=== PATIENT | male | born 1995 | race Two or more races ===

== ENCOUNTER 2019-05-29 05:57 | Day surgery (SDC) | payer OTHER ==
[~2019-05-29] VITALS: Ht 180.3 cm; Wt 117.9 kg
[2019-05-29] VITALS (20 sets, daily range): BP systolic 115–162; BP diastolic 61–91
[2019-05-29] MEDS ORDERED: NKM (06:26)
--- NOTE | 2019-05-29 06:52 | Pre-Procedure Note/Attestation ---
Pre-Procedure Note/Attestation Complete Prior to Procedure Planned Procedure: left Procedure Narrative: left ankle scope, debridement of medial and lateral gutters Indications for Procedure Pre-Operative Diagnosis: left ankle sprain Attestation I attest that I discussed the nature of the procedure; its benefits; risks and complications; and alternatives (and the risks and benefits of such alternatives ), prior to the procedure, with the patient (or the patient's legal service representative). I attest that, if there was a reasonable possibility of needing a blood transfusion, the patient (or the patient's legal service representative) was given the [facility] standardized written summary, pursuant to the Jareth Carlyle Blood Safety Act ([place] Health and Safety Code # 1645, as amended). I attest that I re-evaluated the patient just prior to the surgery and that there has been no change in the patient's H&P, except as documented below:none Alfred Aly MD May 29, 2019 06:52
--- NOTE | 2019-05-29 06:58 | Anethesia Preoperative Eval ---
Anesthesia Pre-op PMH/ROS General Date of Evaluation: May 29, 2019 Anesthesiologist: Cesar ASA Score: ASA 2 Mallampati Score Class I : Soft palate, uvula, fauces, pillars visible Class II: Soft palate, uvula, fauces visible Class III: Soft palate, base of uvula visible Class IV: Only hard plate visible Mallampati Classification: Class II Surgeon: Sheeba Diagnosis: Left ankle pain Surgical Procedure: Left ankle arthroscoyp Anesthesia History: none Family History: no anesthesia problems Allergies: Coded Allergies: No Known Allergies (Unverified , 05/23/19) Medications: see eMAR Patient NPO?: Yes NPO Date: May 28, 2019 NPO Time: 22:00 Past Medical History Cardiovascular: Denies: HTN, CAD, [place], valve dz, arrhythmia, other Pulmonary: Denies: asthma, COPD, SHEYLA, other Gastrointestinal/Genitourinary: Denies: GERD, CRI, ESRD, other Neurologic/Psychiatric: Denies: dementia, CVA, depression/anxiety, TIA, other Endocrine: Denies: DM, hypothyroidism, steroids, other HEENT: Denies: cataract (L), cataract (R), glaucoma, [place] (L), [place] (R), other Hematology/Immune: Denies: anemia, DVT, bleeding disorder, other Musculoskeletal/Integumentary: Reports: other - LBP; Denies: OA, RA, DJD, DDD, edema Other: obesity PSxH Narrative: Denies Anesthesia Pre-op Phys. Exam Physician Exam Last Vital Signs Date Time Temp Pulse Resp B/P (MAP) Pulse Ox O2 Delivery O2 Flow Rate FiO2 05/29/19 06:36 97.6 77 20 131/83 98 Room Air Constitutional: NAD Cardiovascular: RRR Respiratory: CTA Airway Exam Mallampati Score: Class II MO: full ROM: full Teeth: intact Anesthesia Pre-op A/P Labs see chart Studies Pre-op Studies: EKG - sr Risk Assessment & Plan Assessment: ASA II Plan: GA Status Change Before Surgery: No Pre-Antibiotics Drug: Ancef 2g Given Within 1 Hr of Incision: Yes Parisa Nava MD May 29, 2019 06:58
[2019-05-29] MEDS ORDERED: celeBREX 200mg Cap **SURGERY PATIENTS ONLY ORAL ONE (07:00)
[2019-05-29] MEDS ORDERED: oxyCONTIN 20mg tab ORAL ONE (07:00)
[2019-05-29] MEDS ORDERED: ceFAZolin sod 1 GM in NS 55 ML IVPB ONE (07:00)
[2019-05-29] MEDS ORDERED: Bupivacaine w/Epi 0.5% 30ml Vial INJ ONE (07:05)
[2019-05-29] MEDS ORDERED: Zemuron 50mg/5ml Inj IV ONE (07:12)
[2019-05-29] MEDS ORDERED: Propofol 200mg/20ml IV ONE ×2 (07:14→08:19)
[2019-05-29] MEDS ORDERED: fentaNYL 100 mcg/2 mL IV ONE (07:14)
[2019-05-29] MEDS ORDERED: Lidocaine 1% MPF 10mg/ml 5ml ONE (07:14)
[2019-05-29] MEDS ORDERED: NS Irrig 4000ml IRRIG ONE ×2 (07:18→08:47)
[2019-05-29] MEDS ORDERED: D5 1/2NS 1,000 ML IV SCH (07:45)
[2019-05-29] MEDS ORDERED: HYDROcodone/Acetamin 5/325 tab ORAL PRN (07:45)
[2019-05-29] MEDS ORDERED: Tylenol #3 tab (300mg/30mg) ORAL PRN (07:45)
[2019-05-29] MEDS ORDERED: HYDROmorphone 1mg/ml Carpuject SUBQ PRN (07:45)
[2019-05-29] MEDS ORDERED: LR 1000ml ONE (08:00)
[2019-05-29] MEDS ORDERED: Sterile Water Irrig 1000ml IRRIG ONE (08:00)
[2019-05-29] MEDS ORDERED: LR 1000ml 1,000 ML IVLG SCH (08:23)
[2019-05-29] MEDS ORDERED: Metoclopramide 10mg/2ml Inj IVP PRN (08:30)
[2019-05-29] MEDS ORDERED: LORazepam Inj 2mg/ml 1ml IV PRN (08:30)
[2019-05-29] MEDS ORDERED: Ketorolac 30mg Inj IV PRN (08:30)
[2019-05-29] MEDS ORDERED: Midazolam 2mg/2ml Inj IVP PRN (08:30)
[2019-05-29] MEDS ORDERED: DiphenhydrAMINE 50mg/ml Inj IVP PRN (08:30)
[2019-05-29] MEDS ORDERED: fentaNYL 100 mcg/2 mL IV PRN (08:30)
--- NOTE | 2019-05-29 09:25 | Brief Operative Note ---
Immediate Post Operative Note Operative Note Chief Complaint: left ankle pain Pre-op Diagnosis: left ankle sprain Procedure: left ankle scope, debridement of medial and lateral gutters Post-op Diagnosis: same as pre-op Findings: consistent w/pre-op dx studies Surgeon: md emma Corporate Counselor: marry mata Anesthesiologist: md emani Anesthesia: general Specimen: none Complications: none Condition: stable Fluids: ns Estimated Blood Loss: minimal Drains: none Implant(s) used?: No Mary Mata May 29, 2019 09:25
--- NOTE | 2019-05-29 09:32 | Immediate Post-Op Evaluation ---
Immediate Post-Op Evalulation Immediate Post-Op Evalulation Procedure: LEft ankle arthroscopy Date of Evaluation: May 29, 2019 Time of Evaluation: 09:33 IV Fluids: 800 Blood Products: 0 Estimated Blood Loss: min Urinary Output: 0 Blood Pressure Systolic: 115 Blood Pressure Diastolic: 70 Pulse Rate: 78 Respiratory Rate: 16 O2 Sat by Pulse Oximetry: 98 Temperature (Fahrenheit): 97.9 Pain Score (1-10): 0 Nausea: No Vomiting: No Complications 0 Patient Status: awake, reacts, patent, none Hydration Status: adequate Drug: Ancef 2g Given Within 1 Hr of Incision: Yes Parisa Nava MD May 29, 2019 09:32
--- NOTE | 2019-05-29 09:32 | 48 Hour Post Anesthesia Eval ---
Post Anesthesia Evaluation Procedure: LEft ankle arthroscopy Date of Evaluation: May 29, 2019 Airway: patent Nausea: No Vomiting: No Pain Intensity: 0 Hydration Status: adequate Cardiopulmonary Status: at baseline Mental Status/LOC: patient returned to baseline Post-Anesthesia Complications: 0 Follow-up care needed: ready to discharge Parisa Nava MD May 29, 2019 09:32
[2019-05-29] MEDS: Hydromorphone 0.5mg/0.5ml inj IVP PRN ×2 (10:03→10:24)
[2019-05-29] MEDS ORDERED: Ropivacaine 5mg/ml Vial 30ml INJ ONE (12:04)
--- NOTE | 2019-05-29 12:30 | NUR ---
DR AGUILAR HERE TO GIVE BLOCK FOR PATIENT AND TOLERATED . V/S STABLE . NO FURTHER C/O PAIN AFTER .NEUROCHECK NO DEFICIT PATIENT ABLE TO WIGGLE TOES COLOR AND CIRC OK PULSES PRESENT
--- NOTE | 2019-05-29 15:15 | Operative Note - Dictated ---
DATE OF OPERATION: 05/29/2019 PREOPERATIVE DIAGNOSIS: Left ankle soft tissue impingement on medial and lateral gutter. POSTOPERATIVE DIAGNOSIS: Left ankle soft tissue impingement on medial and lateral gutter. PROCEDURE: 1. Left ankle arthroscopy and extensive intra-articular shaving. 2. Left ankle extensive debridement of the medial and lateral gutter with resection of hypertrophic synovium and scar tissue. SURGEON: Alfred Aly M.D. CLAIM REP: Mary Hernandez PA-C. ANESTHESIOLOGIST: Dr. Paniagua. ANESTHESIA: LMA anesthesia. ESTIMATED BLOOD LOSS: Less than 20 mL. COMPLICATIONS: None. BRIEF HISTORY: The patient is a pleasant 24-year-old gentleman, who sustained injury to his left ankle. He was evaluated and was noted to have continued pain, swelling, and impingement over the anterolateral as well as anteromedial gutters. After full discussion of risks, benefits of the surgery, and complications associated with it including infection, bleeding, neurovascular complication, possibility of continued pain, possible need for further surgery, and other complications that may arise, he opted for surgical treatment as described above. OPERATIVE PROCEDURE: The patient was brought to the operating table and was placed supine. All pressure points were well padded. General LMA anesthesia was induced and the left leg was then placed in a counter traction with a Hernandez and Nephew leg mendoza. The left leg was then prepped and draped in the usual sterile fashion and was placed in an external traction device. The left leg was exsanguinated and tourniquet was inflated to 275 mmHg. At this point, through the anteromedial approach just medial to the anterior tibialis, an 18-gauge needle was placed intra-articularly and 20 mL of 0.5% Marcaine was injected. Subsequently, after about 5 minutes, a small horizontal incision was made, which was widened with the and trocar was used to enter into the tibiotalar joint. The scope was placed in and the lateral portal was established under direct visualization. At this point, a tibiotalar arthroscopy was initiated. There was extensive scar tissue in the tibiotalar joint, especially in the anterior compartment. The entire anterior compartment was obliterated by soft tissue swelling. There was hypertrophic synovium. At this point, through viewing from the medial portal and operating through the lateral portal, a shaver was placed in and the anterior scar tissue resection all the way to the neck of the talus. Subsequently, the lateral talus and lateral tibial plafond was visualized. There were intact. There was no osteochondral defect. The syndesmotic ligaments were intact. The lateral gutter was visualized and there was extensive scar tissue in and was completely filled with scar tissue. The mid talus and mid tibial plafond were intact. Medially, the medial malleolus and medial plafond were intact. The medial talus had no osteochondral defect. The medial gutter was visualized. There was a scar tissue. At this point, using a shaver, the medial gutter was then first debrided and the entire scar tissue was removed and deltoid ligament could be seen from the tip of the medial malleolus. The entire medial gutter would be visualized after extensive debridement. Subsequently, through viewing from the medial portal and operating through the lateral portal, the lateral gutter was debrided back to a stable zone. This provided excellent resection of all the scar tissue. Extensive debridement was performed over the lateral gutter. At this point, the scope was placed in the lateral portal and the lateral gutter was visualized. The articular portion of the anterior talofibular ligament could be seen and was intact. The lateral gutter was completely cleaned. At this point, the posterior structures through the Notch of Alexi were visualized through the medial portal. The posterior structure appeared to be intact including posterior syndesmotic ligament and transverse ligament. There was no hypertrophy and there was no osteochondral defect. At this point, wounds were thoroughly irrigated using copious amount of fluid. The scope was removed. The skin was reapproximated using 3-0 nylon sutures. Sterile dressing was applied and the patient was placed in a posterior splint with a stirrup, which will be removed within a week. All lap counts and instrument counts were correct. Alfred Aly M.D. DR: ALEXANDR JOB#: [id number] CC:
== END 2019-05-29 14:20 | disposition home or self-care (01) ==
LOC: SUR 05:57
DX: M25.872 Other specified joint disorders, left ankle and foot (principal); E66.9 Obesity, unspecified; Z68.36 Body mass index [BMI] 36.0-36.9, adult
CPT/HCPCS: 29898; 97161; J0690; J1170; J1885; J2250; J2405; J2704; J2795; J3010; 94003; 94150